=== PATIENT | female | born 1975 | race Caucasian/White ===

== ENCOUNTER 2017-03-23 15:59 | Emergency (ER) | payer MEDICAID ==
[~2017-03-23] VITALS: Ht 175.3 cm; Wt 93.0 kg
--- NOTE | 2017-03-23 16:53 | Urgent Treatment Center Report ---
History of Present Issue Date/Time Seen by Provider 03/23/17 7358 Visit Reason Pt arrived:Walked Presenting Problem:PT C/O SINUS DRAINAGE, HEAD CONGESTION, AND SORE THROAT Location if Accident: Onset of symptoms date/time:/ or onset unknown for:MEDICAL HX UNKNOWN Have you (or family members/close friends) recently traveled outside the [place]? N If Yes, where/when: Have you had exposure to infectious disease within the past month? TB? Other? Specify: Patient state that she has been feeling well States that she has been seen multiple times at the [facility] over the last month and had several rounds of antibiotic for upper respiratory infections and bronchitis States that she is having sinus drainage again advised clear in color and head congestion and sore throat Denies fever, denies nausea and vomiting States that she aslo noticed that she began having puss like drainage from left ear today and thought that may need to be checked also ALLERGIES Coded Allergies: No Known Allergies (03/23/17) History Medical History General CAD? No Angina: No WI: No Hypertension? No Hyperlipidemia? No CHF? No DVT? No PE? No COPD? No Asthma? No Anemia? No GERD? No Gastric ulcers? No GI Bleed? No Hernia? No Thyroid Problems? No Hypothyroidism? No CVA? No Seizures? No Diabetes? No Renal Insuffiency? No UTI? No Stones? No BPH? No GB Disease: No Nephritic Syndrome? No Asplenia? No Hepatitis? No Sickle Cell Disease? No Arthritis? No Migraines? No Cataracts? No Glaucoma? No MRSA? No HIV? No TB? No Anxiety? No Depression? No Cancer? No More? No Immunization HX DT/Tetanus Unknown Surgical Hx Previous Surgery?N Social History Smoking Hx Smoker: Current Every Day Smoker Tobacco: Yes Type Cigarettes Alcohol Alcohol: No Review of Systems All Other Systems Reviewed and Negative ENT ear pain, nose congestion, throat pain. Respiratory cough, denies shortness of breath, denies stridor, denies wheezing Cardiovascular denies chest pain, denies syncope Gastrointestinal denies diarrhea, denies nausea, denies vomiting Physical Exam Vital Signs Vital Signs Date Time Temp Pulse Resp B/P Pulse O2 O2 Flow FiO2 Ox Delivery Rate 03/23 1627 99.1 95 18 125/93 97 General Appearance normal appearance, WD/WN, no apparent distress Ear, Nose, Throat sinus pain/drainage, nasal congestion, Left ear canal puss filled, clear drainage from sinuses noted throat red irritated no exudate Respiratory Status Yes: trachea midline, chest symmetrical, non tender chest. No: respiratory distress. Cardiovascular normal exam, regular rate/rhythm Neurologic alert, normal exam, oriented x 3 Medical Decision Making LABS/Meds/Orders Pt receiving controlled substance in ED? No Departure Departure Time of Disposition 1721 Disposition DC Home or Self Care(routine) Clinical Impression Primary Impression: Otitis externa Qualifiers: Otitis externa type: unspecified type Chronicity: unspecified Laterality: left Qualified Code: H60.92 - Unspecified otitis externa, left ear Condition STABLE Referrals SHIN FRY (Family) Patient Instructions Allergic Rhinitis, Cough, DI for Otitis Externa, Sore Throat Additional Instructions * Monitor Temp. Tylenol and/or Ibuprofen as needed. ER if fever is no less than 101 despite alternating Tylenol and Ibuprofen * Encourage fluids, water, Gatorade, powerade, pedialyte if infant/toddler/or child * Warm salt water gargles for throat irritation *Warm fluids *Sore throat lozenges *Sleep elevated *humidifier or vaporizer *Flonase 2 sprays each nostril daily but may take 2-3 days to notice improvement with it *Bromfed may cause drowsiness. Know how it effect you or your child. Before driving, caring for small children or sending your child to school Follow up IMMEDIATELY for new or worsening of symptoms OR no noticeable improvement over the next 48-72 hours. 911 immediately for any life threatening symptoms such as chest pain or difficulty breathing Discharge Counseling Counseled pt/family regarding diagnosis, medications/RX, home care, follow up needs Prescriptions Current Visit Scripts D-METHORPHAN HB/P-EPD HCL/BPM (Bromfed Dm Cough Syrup) 10 ML PO Q4HP PRN cough #120 SYR Loratadine (Claritin 10MG) 10 MG PO DAILY #30 TAB Fluticasone Propionate (Flonase 50 Mcg Nasal [place]) 2 SPRAY NA DAILY #1 BOT Methylprednisolone (Medrol Dose Jaylyn) 4 MG PO UD #1 JAYLYN TAKE DIRECTED ON PACKAGING OFLOXACIN (Floxin 0.3% Otic Solution 5ML) 10 DROP OT BID #1 BOT at 1720
[2017-03-23] MEDS ORDERED: FLOXIN 0.3%5 ML/BOT OT (17:24)
[2017-03-23] MEDS ORDERED: BROMFED DM COU118 ML PO (17:24)
[2017-03-23] MEDS ORDERED: FLONASE 50 MCG16 GM (17:24)
[2017-03-23] MEDS ORDERED: MEDROL 4MG. DOSE4 MG PO (17:24)
[2017-03-23] MEDS ORDERED: CLARITIN 10MG T10 MG PO (17:24)
[2017-03-23 17:27] VITALS: BP 125/93
--- OUTSIDE RECORDS SUMMARY | 2017-03-28 21:01 | External Medical Summary Rpt | CCD ---
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 Name Role Phone BEINEKE KASANDRA, LAVON Unavailable Unavailable BRITTON CARTAGENA Unavailable Unavailable EYAL, EYAL Unavailable Unavailable EYAL YOSELIN, EYAL Unavailable Unavailable YOSELIN [facility], Unavailable Unavailable [facility], Unavailable Unavailable [facility] Unavailable Unavailable [facility], [facility] ALEX ONEILL, Unavailable Unavailable ALEX ONEILL, Unavailable Unavailable ELIZA PARRY Unavailable Unavailable STONE, STONE Unavailable Unavailable Purpose Continuity of Care Document - 04-20-2014 through 2016 Problems Code Diagnosis DOS Provider Status [id number] AC 01-23-2017 [facility] SUPPURATIVE PHYSICIAN OM W/O GROUP RUPT EAR DRUM RECUR LT EAR Z23 ENCOUNTER 07-25-2016 [facility] IMMUNIZATIO GROUP N J00 ACUTE 06-14-2016 [facility] NASOPHARYNG PHYSICIAN ITIS COMMON GROUP COLD [id number] ACUTE 04-21-2016 [facility] SUPPURATIVE PHYSICIAN OM W/O GROUP RUPT EAR DRUM LT EAR H7291 UNS 04-21-2016 [facility] PERFORATION PHYSICIAN OF GROUP TYMPANIC MEMBRANE RIGHT EAR H6692 OTITIS 03-18-2016 [facility] MEDIA PHYSICIAN UNSPECIFIED GROUP LEFT EAR H5203 HYPERMETROP 02-03-2016 [facility] GRE BILATERAL 6100 SOLITARY 04-28-2014 [facility] 6108 OTHER 04-28-2014 [facility] MAMMARY DYSPLASIAS 04617 MASTODYNIA 04-28-2014 [facility] Medications Na ND Rx Da Fi Fi Am Da Di Ph RX Ph St me C No te ll ll ou ys ag ar # ys at rm s nt no ma ic us Or Da si cy ia de te s n re d [place] 59 09 09 6. 5 00 WA Ac IT 76 -0 -2 00 00 L- ti HR 23 3- 9- 0 07 MA ve OM 06 20 20 50 RT YC 00 17 17 74 IN 1 89 PH AR 25 MA 0 CY MG #5 TA 91 BL ET BE 51 09 09 21 7 00 WV Ac NZ 22 -0 -2 .0 00 L- ti ON 40 3- 9- 00 07 MA ve AT 00 20 20 50 RT AT 16 17 17 74 E 0 90 PH 20 AR 0 MA MG CY CA #5 PS [address] 00 09 09 10 5 00 WV Ac ED 14 -0 -2 .0 00 L- ti NI 39 3- 9- 00 07 MA ve SO 73 20 20 50 RT NE 80 17 17 74 5 91 PH 20 AR MA MG CY TA #5 BL 91 ET VE 00 09 09 18 17 00 WV Ac NT 17 -0 -2 .0 00 L- ti OL 30 3- 9- 00 07 MA ve IN 68 20 20 50 RT 22 17 17 74 HF 0 93 PH A AR 90 MA CY MC G #5 IN 91 CAPPS LE R AM 00 08 09 20 10 00 WV Ac OX 09 -1 -0 .0 00 L- ti IC 33 0- 1- 00 07 MA ve IL 10 20 20 50 RT LI 90 17 17 34 N 5 02 PH 50 AR 0 MA MG CY CA #5 PS 91 UL E HY 00 07 08 [address] 40 -2 -1 .0 00 L- ti OC 60 8- 8- 00 02 MA ve OD 12 20 20 24 RT ON 30 17 17 13 -A 1 12 PH CE AR TA MA [place] CY NO PH #5 EN 91 5- 32 5 BR 60 12 01 18 3 00 WV Ac OM 43 -3 -2 0. 00 L- ti PH 20 0- 0- 00 07 MA ve EN 27 20 20 0 46 RT IR 51 16 17 16 -P 6 78 PH SE AR UD MA OE CY PH ED #5 -D 91 M SY R Immunization Name Date Rout CVX Reac Dose Comm Prov Is Faci e tion ent ider Refu lity Give sed n TDAP 02-0 115 STON No [facility] 9-20 E PHYS VACC 17 ICIA INE NS 7 GROU YRS/ P > IM Procedures Procedure DOS Code Location Performer Comment TDAP 33139 [facility] VACCINE 7 7 PHYSICIAN YRS/> IM S GROUP IM ADM 97137 [facility] STONE PRQ ID 7 PHYSICIAN SUBQ/IM S GROUP NJXS 1 VACCINE OPHTH 67297 [facility] 6 GRE GRE XM&EVAL COMPRE NEW PT 1/> VST US BREAST 34560 [facility] DOLL REAL 4 MEDICAL KASANDRA TIME IMAGING W/IMAGE ASS DOCUMENTA TION DIAGNOSTI G0204 STPEH DOLL C 4 MEDICAL KASANDRA MAMMOGRAP IMAGING HY INCL ASS CAD WHEN PERF; BILAT Encounters Encounter Start End Date Code Location Performer Type Date OFFICE 94907 [facility] 7 7 PHYSICIAN T VISIT GROUP 15 MINUTES OFFICE 23636 [facility] 6 6 PHYSICIAN T VISIT GROUP 15 MINUTES OFFICE 43421 [facility] OUTPATIEN 6 6 PHYSICIAN T VISIT GROUP 25 MINUTES OFFICE 35348 [facility] NEW [facility] GROUP MINUTES [facility] - 4 4 [facility] OUTPATIEN INC T OFFICE 48879 [facility] E[facility]AL OUTPATIEN 4 4 PHYSICIAN YOSELIN T NEW 20 S GROUP MINUTES
--- OUTSIDE RECORDS SUMMARY | 2017-03-28 21:01 | External Medical Summary Rpt | CCD ---
Author Author , KAYLEIGH Organization KAYLEIGH Address Unknown Phone [email or web address] Care Team Providers Care Animal [facility] Clerk Name Role Phone BEINEKE KASANDRA, LAVON Unavailable Unavailable BRITTON CARTAGENA Unavailable Unavailable EYAL, EYAL Unavailable Unavailable EYAL YOSELIN, EYAL Unavailable Unavailable YOSELIN [facility], Unavailable Unavailable [facility], Unavailable Unavailable [facility] Unavailable Unavailable [facility], [facility] ALEX ONEILL, Unavailable Unavailable ALEX ONEILL, Unavailable Unavailable ELIZA PARRY Unavailable Unavailable STONE, STONE Unavailable Unavailable Purpose Continuity of Care Document - 04-20-2014 through 2016 Problems Code Diagnosis DOS Provider Status [id number] AC 01-23-2017 [facility] SUPPURATIVE PHYSICIAN OM W/O GROUP RUPT EAR DRUM RECUR LT EAR Z23 ENCOUNTER 07-25-2016 [facility] IMMUNIZATIO GROUP N J00 ACUTE 06-14-2016 [facility] NASOPHARYNG PHYSICIAN ITIS COMMON GROUP COLD [id number] ACUTE 04-21-2016 [facility] SUPPURATIVE PHYSICIAN OM W/O GROUP RUPT EAR DRUM LT EAR H7291 UNS 04-21-2016 [facility] PERFORATION PHYSICIAN OF GROUP TYMPANIC MEMBRANE RIGHT EAR H6692 OTITIS 03-18-2016 [facility] MEDIA PHYSICIAN UNSPECIFIED GROUP LEFT EAR H5203 HYPERMETROP 02-03-2016 ALEX IA GRE BILATERAL 6100 SOLITARY 04-28-2014 [facility] 6108 OTHER 04-28-2014 [facility] B[facility]IGN IM[facility]ING [facility] MAMMARY DYSPLASIAS 83908 MASTODYNIA 04-28-2014 [facility] Medications Na ND Rx [...] BE 51 09 09 21 7 00 AR Ac NZ 22 -0 -2 .0 00 L- ti ON 40 3- 9- 00 07 MA ve AT 00 20 20 50 RT AT 16 17 17 74 E 0 90 PH 20 AR 0 MA MG CY CA #5 PS 91 UL E AR 00 09 09 10 5 00 AR Ac ED 14 -0 -2 .0 00 L- ti NI 39 3- 9- 00 07 MA ve SO 73 20 20 50 RT NE 80 17 17 74 5 91 PH 20 AR MA MG CY TA #5 BL 91 ET VE 00 09 09 18 17 00 AR Ac NT 17 -0 -2 .0 00 L- ti OL 30 3- 9- 00 07 MA ve IN 68 20 20 50 RT 22 17 17 74 HF 0 93 PH A AR 90 MA CY MC G #5 IN 91 CAPPS LE R AM 00 08 09 20 10 00 AR Ac OX 09 -1 -0 .0 00 L- ti IC 33 0- 1- 00 07 MA ve IL 10 20 20 50 RT LI 90 17 17 34 N 5 02 PH 50 AR 0 MA MG CY CA #5 PS 91 UL E HY 00 07 08 [address] 40 -2 -1 .0 00 L- ti OC 60 8- 8- 00 02 MA ve OD 12 20 20 24 RT ON 30 17 17 13 -A 1 12 PH CE AR TA MA MN CY NO PH #5 EN 91 5- 32 5 BR 60 12 01 18 3 00 AR Ac OM 43 -3 -2 0. 00 [...] Procedure DOS Code Location Performer Comment TDAP 22345 [facility] VACCINE 7 7 PHYSICIAN YRS/> IM S GROUP IM ADM 28677 [facility] STONE PRQ ID 7 PHYSICIAN SUBQ/IM S GROUP NJXS 1 VACCINE OPHTH 24910 [facility] 6 GRE GRE XM&EVAL COMPRE NEW PT 1/> VST US BREAST 52415 [facility] DOLL REAL 4 MEDICAL KASANDRA TIME IMAGING W/IMAGE ASS DOCUMENTA TION DIAGNOSTI G0204 STEPH DOLL C 4 MEDICAL KASANDRA MAMMOGRAP IMAGING HY INCL ASS CAD WHEN PERF; BILAT Encounters Encounter Start End Date Code Location Performer Type Date OFFICE 92365 [facility] OUT[facility] 7 7 PHYSICIAN T VISIT GROUP 15 MINUTES OFFICE 29131 [facility] OUT[facility] 6 6 PHYSICIAN T VISIT GROUP 15 MINUTES OFFICE 39824 [facility] OUTPATIEN 6 6 PHYSICIAN T VISIT GROUP 25 MINUTES OFFICE 20708 [facility] T NEW 20 GROUP MINUTES [facility] - 4 4 [facility] [place] [facility]IEN INC T OFFICE 73591 [facility] OUTPATIEN 4 4 PHYSICIAN YOSELIN T NEW 20 S GROUP MINUTES
--- OUTSIDE RECORDS SUMMARY | 2017-03-28 21:02 | External Medical Summary Rpt ---
Author Author KAYLEIGH Reyes, KAYLEIGH Production Organization [employer]IGH [employer] Address Unknown Phone Unavailable
--- OUTSIDE RECORDS SUMMARY | 2017-03-28 21:02 | External Medical Summary Rpt | CCD ---
Demographics Preferred Language Malagasy Marital Status Unknown Scientology Affiliation Unknown Race Unknown Ethnic Group Unknown Author Author , KAYLEIGH VICTOR Address Unknown Phone Immunization No patient found.
--- OUTSIDE RECORDS SUMMARY | 2017-03-28 21:02 | External Medical Summary Rpt | CCD ---
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 Name Role Phone BRITTON JARQUIN Unavailable Unavailable EYAL, EYAL Unavailable Unavailable EYAL YOSELIN, EYAL Unavailable Unavailable YOSELIN [facility] Unavailable Unavailable INC, [facility], Unavailable Unavailable [facility], Unavailable Unavailable [facility] Unavailable Unavailable [facility], [facility] ALEX ONEILL, Unavailable Unavailable ALEX ONEILL, Unavailable Unavailable ELIZA PARRY Unavailable Unavailable STONE, STONE Unavailable Unavailable Purpose Continuity of Care Document - 04-20-2014 through 2016 Problems Code Diagnosis DOS Provider Status [id number] AC 01-23-2017 [facility] SUPPURATIVE PHYSICIAN OM W/O GROUP RUPT EAR DRUM RECUR LT EAR Z23 ENCOUNTER 07-25-2016 [facility] IMMUNIZATIO GROUP N J00 ACUTE 06-14-2016 [facility] NASOPHARYNG PHYSICIAN ITIS COMMON GROUP COLD [id number] ACUTE 04-21-2016 [facility] SUPPURATIVE PHYSICIAN OM W/O GROUP RUPT EAR DRUM LT EAR H7291 UNS 04-21-2016 [facility] PERFORATION PHYSICIAN OF GROUP TYMPANIC MEMBRANE RIGHT EAR H6692 OTITIS 03-18-2016 [facility] MEDIA PHYSICIAN UNSPECIFIED GROUP LEFT EAR H5203 HYPERMETROP 02-03-2016 ALEX RAYA GRE BILATERAL 6100 SOLITARY 04-28-2014 [facility] 6108 OTHER 04-28-2014 [place] SPECIFIED [facility] BENIGN IMAGING ASS MAMMARY DYSPLASIAS 03656 MASTODYNIA 04-28-2014 [facility] Medications Na ND Rx [...] BE 51 09 09 21 7 00 NC Ac NZ 22 -0 -2 .0 00 L- ti ON 40 3- 9- 00 07 MA ve AT 00 20 20 50 RT AT 16 17 17 74 E 0 90 PH 20 AR 0 MA MG CY CA #5 PS 91 UL E NM 00 09 09 10 5 00 NC Ac ED 14 -0 -2 .0 00 L- ti NI 39 3- 9- 00 07 MA ve SO 73 20 20 50 RT NE 80 17 17 74 5 91 PH 20 AR MA MG CY TA #5 BL 91 ET VE 00 09 09 18 17 00 NC Ac NT 17 -0 -2 .0 00 L- ti OL 30 3- 9- 00 07 MA ve IN 68 20 20 50 RT 22 17 17 74 HF 0 93 PH A AR 90 MA CY MC G #5 IN 91 CAPPS LE R AM 00 08 09 20 10 00 NC Ac OX 09 -1 -0 .0 00 L- ti IC 33 0- 1- 00 07 MA ve IL 10 20 20 50 RT LI 90 17 17 34 N 5 02 PH 50 AR 0 MA MG CY CA #5 PS 91 UL E HY 00 07 08 [address] 40 -2 -1 .0 00 L- ti OC 60 8- 8- 00 02 MA ve OD 12 20 20 24 RT ON 30 17 17 13 -A 1 12 PH CE AR TA MA OK CY NO PH #5 EN 91 5- 32 5 BR 60 12 01 18 3 00 NC Ac OM 43 -3 -2 0. 00 [...] Procedure DOS Code Location Performer Comment TDAP 59110 [facility] STONE VACCINE 7 7 PHYSICIAN YRS/> IM S GROUP IM ADM 76946 [facility] STONE PRQ ID 7 PHYSICIAN SUBQ/IM S GROUP NJXS 1 VACCINE OPHTH 22764 [facility] 6 GRE GRE XM&EVAL COMPRE NEW PT 1/> VST DIAGNOSTI G0204 [facility] MAMMOGRAP INC INC HY INCL CAD WHEN PERF; BILAT US BREAST 36305 [facility] REAL [facility] TIME INC INC W/IMAGE DOCUMENTA TION Encounters Encounter Start End Date Code Location Performer Type Date OFFICE 33368 [facility] OUTPATIEN 7 7 PHYSICIAN T VISIT GROUP 15 MINUTES OFFICE 38273 [facility] OUTPATIEN 6 6 PHYSICIAN T VISIT GROUP 15 MINUTES OFFICE 85958 [facility] EYAL OUTPATIEN 6 6 PHYSICIAN T VISIT GROUP 25 MINUTES OFFICE 30356 [facility] ELIZA OUTPATIEN 6 6 PHYSICIAN T NEW [address] [facility] - 4 4 [facility] OUT[facility] INC T OFFICE 42159 [facility] EYAL OUTPATIEN 4 4 PHYSICIAN YOSELIN T NEW 20 S GROUP MINUTES
--- OUTSIDE RECORDS SUMMARY | 2017-03-28 21:02 | External Medical Summary Rpt | CCD ---
Author Author , KAYLEIGH VICTOR Address Unknown Phone [email or web address] Care Team Providers Care Shoeshiner Name Role Phone BRITTON JARQUIN Unavailable Unavailable EYAL, EYAL Unavailable Unavailable EYAL YOSELIN, EYAL Unavailable Unavailable YOSELIN [facility] Unavailable Unavailable INC, [facility], Unavailable Unavailable [facility], Unavailable Unavailable [facility] Unavailable Unavailable [facility], [facility] ALEX ONEILL, Unavailable Unavailable ALEX ONEILL, Unavailable Unavailable ELIZA PARRY Unavailable Unavailable STONE, STONE Unavailable Unavailable Purpose Continuity of Care Document - 04-20-2014 through 2016 Problems Code Diagnosis DOS Provider Status [id number] AC 01-23-2017 [facility] SUPPURATIVE PHYSICIAN OM W/O GROUP RUPT EAR DRUM RECUR LT EAR Z23 ENCOUNTER 07-25-2016 [facility] IMMUNIZATIO GROUP N J00 ACUTE 06-14-2016 [facility] NASOPHARYNG PHYSICIAN ITIS COMMON GROUP COLD [id number] ACUTE 04-21-2016 [facility] SUPPURATIVE PHYSICIAN OM W/O GROUP RUPT EAR DRUM LT EAR H7291 UNS 04-21-2016 [facility] PERFORATION PHYSICIAN OF GROUP TYMPANIC MEMBRANE RIGHT EAR H6692 OTITIS 03-18-2016 [facility] MEDIA PHYSICIAN UNSPECIFIED GROUP LEFT EAR H5203 HYPERMETROP 02-03-2016 ALEX RAYA GRE BILATERAL 6100 SOLITARY 04-28-2014 [facility] 6108 OTHER 04-28-2014 [place] SPECIFIED [facility] BENIGN IMAGING ASS MAMMARY DYSPLASIAS 06923 MASTODYNIA 04-28-2014 [facility] Medications Na ND Rx [...] BE 51 09 09 21 7 00 PR Ac NZ 22 -0 -2 .0 00 L- ti ON 40 3- 9- 00 07 MA ve AT 00 20 20 50 RT AT 16 17 17 74 E 0 90 PH 20 AR 0 MA MG CY CA #5 PS 91 UL E MD 00 09 09 10 5 00 PR Ac ED 14 -0 -2 .0 00 L- ti NI 39 3- 9- 00 07 MA ve SO 73 20 20 50 RT NE 80 17 17 74 5 91 PH 20 AR MA MG CY TA #5 BL 91 ET VE 00 09 09 18 17 00 PR Ac NT 17 -0 -2 .0 00 L- ti OL 30 3- 9- 00 07 MA ve IN 68 20 20 50 RT 22 17 17 74 HF 0 93 PH A AR 90 MA CY MC G #5 IN 91 CAPPS LE R AM 00 08 09 20 10 00 PR Ac OX 09 -1 -0 .0 00 L- ti IC 33 0- 1- 00 07 MA ve IL 10 20 20 50 RT LI 90 17 17 34 N 5 02 PH 50 AR 0 MA MG CY CA #5 PS 91 UL E HY 00 07 08 [address] 40 -2 -1 .0 00 L- ti OC 60 8- 8- 00 02 MA ve OD 12 20 20 24 RT ON 30 17 17 13 -A 1 12 PH CE AR TA MA MD CY NO PH #5 EN 91 5- 32 5 BR 60 12 01 18 3 00 PR Ac OM 43 -3 -2 0. 00 [...] Procedure DOS Code Location Performer Comment TDAP 50465 [facility] STONE VACCINE 7 7 PHYSICIAN YRS/> IM S GROUP IM ADM 04754 [facility] STONE PRQ ID 7 PHYSICIAN SUBQ/IM S GROUP NJXS 1 VACCINE OPHTH 00115 [facility] 6 GRE GRE XM&EVAL COMPRE NEW PT 1/> VST DIAGNOSTI G0204 [facility] MAMMOGRAP INC INC HY INCL CAD WHEN PERF; BILAT US BREAST 61171 [facility] REAL [facility] TIME INC INC W/IMAGE DOCUMENTA TION Encounters Encounter Start End Date Code Location Performer Type Date OFFICE 22904 [facility] OUT[facility] 7 7 PHYSICIAN T VISIT GROUP 15 MINUTES OFFICE 41032 [facility] OUT[facility]IEN 6 6 PHYSICIAN T VISIT GROUP 15 MINUTES OFFICE 47242 [facility] EYAL OUTPATIEN 6 6 PHYSICIAN T VISIT GROUP 25 MINUTES OFFICE 53620 [facility] OUTPATIEN 6 6 PHYSICIAN T NEW 20 GROUP MINUTES [facility] - 4 4 [facility] OUTPATIEN INC T OFFICE 79851 [facility] E[facility]AL OUTPATIEN 4 4 PHYSICIAN YOSELIN T NEW 20 S GROUP MINUTES
--- OUTSIDE RECORDS SUMMARY | 2017-03-28 21:02 | External Medical Summary Rpt | CCD ---
Demographics Preferred Language [place] Citizen Marital Status Unknown Anabaptism Affiliation Unknown Race Unknown Ethnic Group Unknown Author Author , KAYLEIGH VICTOR Address Unknown Phone Immunization No patient found.
== END 2017-03-23 17:29 | disposition home or self-care (01) ==
LOC: UTC 15:59
DX: H60.92 Unspecified otitis externa, left ear (principal); Z72.0 Tobacco use

== ENCOUNTER 2017-04-29 09:26 | Emergency (ER) | payer MEDICAID ==
[~2017-04-29] VITALS: Ht 175.3 cm; Wt 93.4 kg
[~2017-04-29 09:26] MED LIST: BROMFED DM COU118 ML PO; CLARITIN 10MG T10 MG PO; FLONASE 50 MCG16 GM; FLOXIN 0.3%5 ML/BOT OT; MEDROL 4MG. DOSE4 MG PO
--- OUTSIDE RECORDS SUMMARY | 2017-04-29 09:34 | External Medical Summary Rpt | CCD ---
Author Author Conduent Organization Conduent Address Unknown Phone Unavailable Purpose Continuity of Care Document - through 2016
--- OUTSIDE RECORDS SUMMARY | 2017-04-29 09:34 | External Medical Summary Rpt | CCD ---
Author Author KAYLEIGH Address Unknown Phone Purpose Continuity of Care Document - through 2016
--- OUTSIDE RECORDS SUMMARY | 2017-04-29 09:34 | External Medical Summary Rpt | CCD ---
Author Author KAYLEIGH Address Unknown Phone [email or web address] Purpose Continuity of Care Document - through 2016
--- OUTSIDE RECORDS SUMMARY | 2017-04-29 09:35 | External Medical Summary Rpt | CCD ---
Demographics Preferred Language Peruvian Marital Status Unknown Hinduism Affiliation Unknown Race Unknown Ethnic Group Unknown Author Author , KAYLEIGH VICTOR Address Unknown Phone Immunization No patient found.
--- OUTSIDE RECORDS SUMMARY | 2017-04-29 09:35 | External Medical Summary Rpt | CCD ---
Demographics Preferred Language Micronesian Marital Status Unknown Presybeterian Affiliation Unknown Race Unknown Ethnic Group Unknown Author Author , KAYLEIGH VICTOR Address Unknown Phone Immunization No patient found.
--- NOTE | 2017-04-29 09:53 | Urgent Treatment Center Report ---
History of Present Issue Date/Time Seen by Provider 04/29/17 0952 Visit Reason Pt arrived:Walked Presenting Problem:SORE THROAT BEGAN YESTERDAY Location if Accident: Onset of symptoms date/time:/ or onset unknown for:MEDICAL HX UNKNOWN Have you (or family members/close friends) recently traveled outside the [place]? N If Yes, where/when: Have you had exposure to infectious disease within the past month? TB? Other? Specify: c/o sore throat starting yesterday but progressing. No difficulty swallowing besides pain. Grandchildren with strep recently. No known fever but aches and chills. Occasional headaches. Throat lozenges not helping. Source patient Exam Limitations no limitations ALLERGIES Coded Allergies: No Known Allergies (03/23/17) Home Medications Active Scripts D-METHORPHAN HB/P-EPD HCL/BPM (Bromfed Dm Cough Syrup) 10 ML PO Q4HP PRN cough #120 SYR Prov: 03/23/17 Loratadine (Claritin 10MG) 10 MG PO DAILY #30 TAB Prov: 03/23/17 Fluticasone Propionate (Flonase 50 Mcg Nasal [place]) 2 SPRAY NA DAILY #1 BOT Prov: 03/23/17 Methylprednisolone (Medrol Dose Yo) 4 MG PO UD #1 YO Prov: 03/23/17 OFLOXACIN (Floxin 0.3% Otic Solution 5ML) 10 DROP OT BID #1 BOT Prov: 03/23/17 History Medical History General CAD? No Angina: No [place]: No Hypertension? No Hyperlipidemia? No CHF? No DVT? No PE? No COPD? No Asthma? No Anemia? No GERD? No Gastric ulcers? No GI Bleed? No Hernia? No Thyroid Problems? No Hypothyroidism? No CVA? No Seizures? No Diabetes? No Renal Insuffiency? No UTI? No Stones? No BPH? No GB Disease: No Nephritic Syndrome? No Asplenia? No Hepatitis? No Sickle Cell Disease? No Arthritis? No Migraines? No Cataracts? No Glaucoma? No MRSA? No HIV? No TB? No Anxiety? No Depression? No Cancer? No More? No Immunization HX DT/Tetanus Unknown Surgical Hx Previous Surgery?N Social History Smoking Hx Smoker: Current Every Day Smoker Tobacco: Yes Type Cigarettes Alcohol Alcohol: No Review of Systems All Other Systems Reviewed and Negative Constitutional see HPI, malaise, denies weakness Eyes denies drainage ENT see HPI, ear pain (left, chronic, unchanged, ). denies: nose discharge, nose congestion. Respiratory denies cough Gastrointestinal denies no symptoms reported Musculoskeletal see HPI Skin denies rash Psychiatric/Neurological see HPI, denies other (dizziness) Physical Exam Vital Signs Vital Signs Date Time Temp Pulse Resp B/P Pulse O2 O2 Flow FiO2 Ox Delivery Rate 04/29 0938 98.6 98 18 130/90 96 General Appearance no apparent distress (except obvious pain w/ swallow) Eye Exam - bilateral eye normal exam Ear, Nose, Throat pharyngeal erythema, yun EACs normal, left TM scarred w/ tiny perforation, pt reports chronic and symptoms unchanged Neck non-tender, supple Respiratory Status No: respiratory distress, productive cough, non productive cough. Lung Sounds anterior: lungs clear. posterior: lungs clear. bilateral: lungs clear. Cardiovascular regular rate/rhythm, no peripheral edema, no murmur Neurologic alert, oriented x 3 Mental status normal mood/affect Skin normal color, warm/dry Lymphatic no adenopathy Medical Decision Making LABS/Meds/Orders Pt receiving controlled substance in ED? No Results/Orders Laboratory Tests 04/29/17 0953: Group A Strep Screen NOT DETECTED Orders Procedure Date/time Status [facility] STREP SCREEN 04/29 0953 Complete Departure Departure Time of Disposition 1029 Disposition DC Home or Self Care(routine) Clinical Impression Primary Impression: Acute pharyngitis Qualifiers: Pharyngitis/tonsillitis etiology: unspecified etiology Qualified Code: J02.9 - Acute pharyngitis, unspecified Secondary Impressions: Exposure to strep throat Condition STABLE Referrals SHIN FRY (Family) IMMEDIATELY for new or worsening symptoms OR no noticeable improvement over the next 24-48 hours. 911 for difficulty breathing or swallowing Patient Instructions DI for Strep Throat Additional Instructions * As we discussed, your rapid strep was negative but your symptoms and exam along with your exposure has me concerned for strep. We discussed antibiotics for viral vs bacterial. you are aware of the risk of antibiotics and risk for resistance when taking antibiotics for viral illness but based on your symptoms and experiences, you agree w/ taking an antibiotic for these symptoms. If this is viral, the antibiotics will not help. Start antibiotic TAISHA and be sure to take as ordered for the FULL length of time although you should start to feel better in 24-48 hours. * change toothbrush and toothpaste 24-48 hours after starting antibiotic * Monitor Temp. Tylenol every 4 hours as needed no more then 5 times a day or 4000mg in 24 hours and/or ibuprofen every 6 hours as needed no more then 3200mg in 24 hours (as long as your primary care doctor has told you that it is ok to take both) for fever/aches/pain. ER if fever no less than 101 despite tylenol and Ibuprofen * Encourage fluids, water, gatorade, powerade, pedialyte if infant/toddler/child * cold fluids, popsicles, ice cream feel good * you are contagious until you have taken the antibiotic for 24 hours. No school tomorrow. * Avoid kissing anyone, including parents. No eating or drinking after anyone. You are contagious. Discharge Counseling Counseled pt/family regarding diagnosis, test results, medications/RX, home care, follow up needs Prescriptions Current Visit Scripts AMOXICILLIN (Amoxicillin 875MG Tab) 875 MG PO BID #20 TAB at 1033
[2017-04-29] MEDS ORDERED: AMOXICILLIN875 MG PO (10:33)
[2017-04-29 10:45] VITALS: BP 128/88
== END 2017-04-29 10:46 | disposition home or self-care (01) ==
LOC: UTC 09:26
DX: J02.9 Acute pharyngitis, unspecified (principal); Z79.51 Long term (current) use of inhaled steroids; Z79.52 Long term (current) use of systemic steroids; Z79.899 Other long term (current) drug therapy; F17.210 Nicotine dependence, cigarettes, uncomplicated

== ENCOUNTER 2017-05-12 04:18 | Emergency (ER) | payer MEDICAID ==
[~2017-05-12] VITALS: Ht 175.3 cm; Wt 92.5 kg
[~2017-05-12 04:18] MED LIST changes: +AMOXICILLIN875 MG PO
--- NOTE | 2017-05-12 04:39 | Emergency Room Report ---
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 N Clinical Suspician of Infection? N Mental Status: 1 - Regular (Normal Baseline) Sepsis Risk:Low Sepsis Risk Have you (or family members/close friends) recently traveled outside the [place]? N If Yes, where/when: Have you had exposure to infectious disease within the past month? N TB? Other? Specify: Source patient, RN notes reviewed, RN/MD Exam Limitations no limitations Comment This is a 41-year-old lady presenting to the emergency room with right ear pain and pinkish discoloration on a cotton tip that she has noticed prior to arrival. Patient advised that she has had multiple ongoing problems with both ears, over the past several years, mostly out of the left ear. Patient denies any trauma to the right ear today. ALLERGIES Coded Allergies: No Known Allergies (03/23/17) Home Medications Active Scripts Loratadine (Claritin 10MG) 10 MG PO DAILY #30 TAB Prov: 03/23/17 History Medical History General CAD? No Angina: No ID: No Hypertension? No Hyperlipidemia? No CHF? No DVT? No PE? No COPD? No Asthma? No Anemia? No GERD? No Gastric ulcers? No GI Bleed? No Hernia? No Thyroid Problems? No Hypothyroidism? No CVA? No Seizures? No Diabetes? No Renal Insuffiency? No End Stage Renal Disease? No UTI? No Stones? No BPH? No GB Disease: No Nephritic Syndrome? No Asplenia? No Hepatitis? No Sickle Cell Disease? No Arthritis? No Migraines? No Cataracts? No Glaucoma? No MRSA? No HIV? No TB? No Anxiety? No Depression? No Cancer? No More? 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 Physical Exam Vital Signs Vital Signs Date Time Temp Pulse Resp B/P Pulse O2 O2 Flow FiO2 Ox Delivery Rate 05/12 0500 98.1 87 20 112/66 96 05/12 0423 98.1 87 20 96 General Appearance normal appearance, WD/WN, no apparent distress Ear, Nose, Throat hearing grossly normal, LEFT tympanic membrane perforated, no acute inflammatory process RIGHT tympanic membrane perforated, with erythema, acute infiltrative process suggestive of otitis media Respiratory Status Yes: trachea midline, chest symmetrical, non tender chest. No: respiratory distress. Lung Sounds bilateral: normal breath sounds, lungs clear. 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 No Comment 0445am-patient's ongoing, recurrent problems I have instructed her to follow-up with either one of the local ENT specialists, Dr. Benito or Dr. Arambula, per discharge instructions. She was started on antibiotics. Results/Orders Current Medication Orders Sig/Carleen Start time Last Medication Dose Route Stop Time Status Admin Amoxicillin/ 500 MG ONCE ONE 05/12 0500 DC 05/12 Clavulanate Potassium PO 05/12 050 0456 Amoxicillin/ 0 .STK-MED ONE 05/12 0455 DC Clavulanate Potassium PO Departure Departure Time of Disposition 0448 Disposition DC Home or Self Care(routine) Clinical Impression Primary Impression: Otitis media Qualifiers: Otitis media type: serous Chronicity: acute Laterality: right Recurrence: recurrent Qualified Code: H65.04 - Acute serous otitis media, recurrent, right ear Condition STABLE Referrals Tyesha SANON, Karin Benito MD,Manny Doyle: Today after leaving ER Patient Instructions DI for Otitis Media (Middle Ear Infection)-Child Additional Instructions Please follow up with Dr Manny Benito today (between 1:00pm-4:30pm) or alternatlively with Dr Arambula. Take the antibiotics prescribed as directed. Discharge Counseling Counseled pt/family regarding diagnosis, medications/RX, home care, follow up needs Comment Please follow up with Dr Manny Benito today (between 1:00pm-4:30pm) or alternatlively with Dr Arambula. Take the antibiotics prescribed as directed. Prescriptions Current Visit Scripts Amoxicillin/Potassium Clav (Augmentin 875-125 Tablet) 1 EACH PO BID #20 TAB ED Critical Care Critical Care No at 0613
--- NOTE | 2017-05-12 04:39 | Emergency Room Report ---
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 N Clinical Suspician of Infection? N Mental Status: 1 - Regular (Normal Baseline) Sepsis Risk:Low Sepsis Risk Have you (or family members/close friends) recently traveled outside the [place]? N If Yes, where/when: Have you had exposure to infectious disease within the past month? N TB? Other? Specify: Source patient, RN notes reviewed, RN/MD Exam Limitations no limitations Comment This is a 41-year-old lady presenting to the emergency room with right ear pain and pinkish discoloration on a cotton tip that she has noticed prior to arrival. Patient advised that she has had multiple ongoing problems with both ears, over the past several years, mostly out of the left ear. Patient denies any trauma to the right ear today. ALLERGIES Coded Allergies: No Known Allergies (03/23/17) Home Medications Active Scripts Loratadine (Claritin 10MG) 10 MG PO DAILY #30 TAB Prov: 03/23/17 History Medical History General CAD? No Angina: No [place]: No Hypertension? No Hyperlipidemia? No CHF? No DVT? No PE? No COPD? No Asthma? No Anemia? No GERD? No Gastric ulcers? No GI Bleed? No Hernia? No Thyroid Problems? No Hypothyroidism? No CVA? No Seizures? No Diabetes? No Renal Insuffiency? No End Stage Renal Disease? No UTI? No Stones? No BPH? No GB Disease: No Nephritic Syndrome? No Asplenia? No Hepatitis? No Sickle Cell Disease? No Arthritis? No Migraines? No Cataracts? No Glaucoma? No MRSA? No HIV? No TB? No Anxiety? No Depression? No Cancer? No More? 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 Physical Exam Vital Signs Vital Signs Date Time Temp Pulse Resp B/P Pulse O2 O2 Flow FiO2 Ox Delivery Rate 05/12 0500 98.1 87 20 112/66 96 05/12 0423 98.1 87 20 96 General Appearance normal appearance, WD/WN, no apparent distress Ear, Nose, Throat hearing grossly normal, LEFT tympanic membrane perforated, no acute inflammatory process RIGHT tympanic membrane perforated, with erythema, acute infiltrative process suggestive of otitis media Respiratory Status Yes: trachea midline, chest symmetrical, non tender chest. No: respiratory distress. Lung Sounds bilateral: normal breath sounds, lungs clear. 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 No Comment 0445am-patient's ongoing, recurrent problems I have instructed her to follow-up with either one of the local ENT specialists, Dr. Benito or Dr. Arambula, per discharge instructions. She was started on antibiotics. Results/Orders Current Medication Orders Sig/Carleen Start time Last Medication Dose Route Stop Time Status Admin Amoxicillin/ 500 MG ONCE ONE 05/12 0500 DC 05/12 Clavulanate Potassium PO 05/12 050 0456 Amoxicillin/ 0 .STK-MED ONE 05/12 0455 DC Clavulanate Potassium PO Departure Departure Time of Disposition 0448 Disposition DC Home or Self Care(routine) Clinical Impression Primary Impression: Otitis media Qualifiers: Otitis media type: serous Chronicity: acute Laterality: right Recurrence: recurrent Qualified Code: H65.04 - Acute serous otitis media, recurrent, right ear Condition STABLE Referrals Tyesha SANON, Karin Benito MD,Manny Doyle: Today after leaving ER Patient Instructions DI for Otitis Media (Middle Ear Infection)-Child Additional Instructions Please follow up with Dr Manny Benito today (between 1:00pm-4:30pm) or alternatlively with Dr Arambula. Take the antibiotics prescribed as directed. Discharge Counseling Counseled pt/family regarding diagnosis, medications/RX, home care, follow up needs Comment Please follow up with Dr Manny Benito today (between 1:00pm-4:30pm) or alternatlively with Dr Arambula. Take the antibiotics prescribed as directed. Prescriptions Current Visit Scripts Amoxicillin/Potassium Clav (Augmentin 875-125 Tablet) 1 EACH PO BID #20 TAB ED Critical Care Critical Care No at 0613
--- OUTSIDE RECORDS SUMMARY | 2017-05-12 04:50 | External Medical Summary Rpt | CCD ---
Demographics Preferred Language Vietnamese Marital Status Unknown Tenriism Affiliation Unknown Race Unknown Ethnic Group Unknown Author Author KAYLEIGH Address Unknown Phone [email or web address] Purpose Continuity of Care Document - through 2016
--- OUTSIDE RECORDS SUMMARY | 2017-05-12 04:50 | External Medical Summary Rpt ---
Author Author KAYLEIGH Reyes, [employer] Organization [employer] Address Unknown Phone Unavailable Results Streptococcus pyogenes Ag [Presence] in Unspecified specimen Observa Value Referen Units Interpr Notes Date tion ce etation Range Strepto NOT NOTDETE No No LOT # Nov coccus DETECTE CTED informa informa @[id number] pyogene D tion in tion in 7 EXP 9:53 AM s Ag source source DATE [Presen data data @ ce] in 02-06 Unspeci fied specime n
--- OUTSIDE RECORDS SUMMARY | 2017-05-12 04:50 | External Medical Summary Rpt | CCD ---
Demographics Preferred Language Croatian Marital Status Unknown Moravian Affiliation Unknown Race Unknown Ethnic Group Unknown Author Author , KAYLEIGH VICTOR Address Unknown Phone Immunization No patient found.
--- OUTSIDE RECORDS SUMMARY | 2017-05-12 04:50 | External Medical Summary Rpt | CCD ---
Author Author , KAYLEIGH VICTOR Address Unknown Phone [email or web address] Purpose Continuity of Care Document - 04-29-2017 through 2016 Results Labs Lab Lab Date Result Refere Interp Status Commen Order Detail nces retati t Range on Screening group A Streptococcus antigen (04-29-2017 09:53) Screeni NOT NOTDETE complet ng [address] ed group A 09:53 D NOT DETECTE Strepto D L coccus antigen Comment: LOT # @[id number] EXP DATE @2020-02-07 Streptococcus pyogenes Ag [Presence] in Unspecified specimen (04-29-2017 09:53) Strepto NOT NOTDETE complet coccus [address] pyogene 09:53 D s Ag [Presen ce] in Unspeci fied specime n
--- OUTSIDE RECORDS SUMMARY | 2017-05-12 04:50 | External Medical Summary Rpt | CCD ---
Author Author , KAYLEIGH VICTOR Address Unknown Phone [email or web address] Purpose Continuity of Care Document - 04-29-2017 through 2016 Results Labs Lab Lab Date Result Refere Interp Status Commen Order Detail nces retati t Range on Screening group A Streptococcus antigen (04-29-2017 09:53) Screeni NOT NOTDETE complet ng [address] ed group A 09:53 D NOT DETECTE Strepto D L coccus antigen Comment: LOT # @[id number] EXP DATE @2020-02-07 Streptococcus pyogenes Ag [Presence] in Unspecified specimen (04-29-2017 09:53) Strepto NOT NOTDETE complet coccus [address] pyogene 09:53 D s Ag [Presen ce] in Unspeci fied specime n
--- OUTSIDE RECORDS SUMMARY | 2017-05-12 04:50 | External Medical Summary Rpt ---
Author Author KAYLEIGH Reyes, [employer] Address Unknown Phone Unavailable Results Streptococcus pyogenes Ag [Presence] in Unspecified specimen Observa Value Referen Units Interpr Notes Date tion ce etation Range Strepto NOT NOTDETE No No LOT # Nov coccus DETECTE CTED informa informa @[id number] pyogene D tion in tion in 7 EXP 9:53 AM s Ag source source DATE [Presen data data @ ce] in 02-06 Unspeci fied specime n
--- OUTSIDE RECORDS SUMMARY | 2017-05-12 04:50 | External Medical Summary Rpt | CCD ---
Demographics Preferred Language Arabic Marital Status Unknown Adventism Affiliation Unknown Race Unknown Ethnic Group Unknown Author Author KAYLEIGH Address Unknown Phone [email or web address] Purpose Continuity of Care Document - through 2016
--- OUTSIDE RECORDS SUMMARY | 2017-05-12 04:50 | External Medical Summary Rpt | CCD ---
Demographics Preferred Language Iranian Marital Status Unknown Yarsanism Affiliation Unknown Race Unknown Ethnic Group Unknown Author Author , KAYLEIGH VICTOR Address Unknown Phone Immunization No patient found.
[2017-05-12] MEDS ORDERED: AUGMENTIN 875-1 EACH PO (04:51)
[2017-05-12 05:00] VITALS: BP 112/66
== END 2017-05-12 05:01 | disposition home or self-care (01) ==
LOC: ER 04:18
DX: H65.04 Acute serous otitis media, recurrent, right ear (principal); F17.210 Nicotine dependence, cigarettes, uncomplicated